=== PATIENT | male | born 1990 | race American Indian/Alaskan Native ===

== ENCOUNTER 2017-03-01 09:40 | Emergency (ER) | payer SELFPAY ==
[2017-03-01 10:19] VITALS: BP 129/84
== END 2017-03-01 11:54 | disposition home or self-care (01) ==
LOC: ED 09:40
DX: S30.861A Insect bite (nonvenomous) of abdominal wall, initial encounter (principal); F17.200 Nicotine dependence, unspecified, uncomplicated; W57.XXXA Bitten or stung by nonvenomous insect and other nonvenomous arthropods, initial encounter; Y93.9 Activity, unspecified; Y92.9 Unspecified place or not applicable; Y99.9 Unspecified external cause status
CPT/HCPCS: 99282